=== PATIENT | male | born 1975 | race Hispanic/Latino ===

== ENCOUNTER 2025-03-05 07:21 | Day surgery (SDC) | payer BC ==
--- NOTE | 2025-02-27 16:17 | RAD REPORT ---
EXAM: Chest Pa And Lat (2 Views) HISTORY: 49 years Male Pre-op pending hernia repair COMPARISON: None. FINDINGS: LUNGS/PLEURA: The lungs are clear. No pleural effusions or pneumothorax. No pulmonary edema. CARDIAC/MEDIASTINUM: The cardiac silhouette is within normal limits. UPPER ABDOMEN: No significant abnormality. BONES: No acute abnormality. LINES/TUBES/OTHER: N/A IMPRESSION: No evidence of acute cardiopulmonary disease.
[2025-02-27 16:57] LABS: Hematocrit 41.2 % (39.6-49.0); Hemoglobin 13.8 g/dL (13.6-17.9); MCH 28.6 pg (27.0-35.0); MCHC 33.5 g/dL (32.0-36.0); MCV 85.2 fL (80-100); Platelets 309 thou/uL (152-406); RBC Red Blood Cell Count 4.84 M/uL (4.33-5.43); Red Cell Distribution Width 14.5 % (12.1-15.2)
[2025-02-27 16:58] LABS: Basophils % 0.5 % (0-1.3); Lymphocytes % 29.5 % (15.3-44.8); MPV 6.4 fL (7.6-11.3); Monocytes % 5.7 % (3.3-12.3); Neutrophils % 60.3 % (41.7-73.7)
[2025-02-27 16:59] LABS: Absolute Eosinophils 0.3 K/uL (0-0.5); Absolute Lymphocytes (CBC) 2.1 K/uL (0.7-4.9); Absolute Monocytes 0.4 K/uL (0.1-1.3); Absolute Neutrophil 4.3 K/uL (1.8-8.0); Nucleated Red Blood Cells % 0.1 % (0-0)
[2025-02-27 17:10] LABS: Anion Gap 6.8 mEq/L (5.0-15.0); Potassium 3.8 mEq/L (3.5-5.1)
--- NOTE | 2025-02-28 13:23 | EKG ---
Test Date: 2025-02-27 Test Time: 15:33:49 Stroke Program Coordinator: MARNIE MEASUREMENT RESULTS: Intervals: Rate: 80 AL: 140 QRSD: 100 QT: 354 QTc: 408 [place]: P: 49 AL: 140 QRS: 43 T: 47 INTERPRETIVE STATEMENTS: Normal sinus rhythm Normal ECG No previous ECG available for comparison Electronically Signed On 02-28-25 13:18:55 CDT by Carlton Saeed
[2025-03-05] MEDS: Ringers Lactate 1,000 ML IV ONE ×2 (07:50→09:50)
[2025-03-05] MEDS ORDERED: propofoL 200 MG/20 ML VIAL IV ONE (08:08)
[2025-03-05] MEDS ORDERED: LIDOCAINE 1% MPF 5 ML VIAL ONE (08:08)
[2025-03-05] MEDS ORDERED: ONDANSETRON 4 MG/2 ML VIAL ONE (08:08)
[2025-03-05] MEDS ORDERED: FENTANYL CITR 100 MCG/2 ML ONE (08:08)
[2025-03-05] MEDS ORDERED: ROCURONIUM 50 MG/5 ML VIAL IV ONE (08:08)
[2025-03-05] MEDS ORDERED: KETOROLAC 30 MG/ML INJ ONE (08:08)
[2025-03-05] MEDS ORDERED: MIDAZOLAM HCL 2 MG/2 ML INJ ONE (08:08)
[2025-03-05] MEDS: CEFAZOLIN SODIUM 1 GM/VIAL ONE (09:15)
[2025-03-05] MEDS ORDERED: GLYCOPYRROLATE 0.2 MG/ML SYR ONE ×2 (09:27→09:42)
[2025-03-05] MEDS ORDERED: Mastisol Adhesive Liq ONE (09:58)
--- NOTE | 2025-03-05 10:06 | P.BOP ---
Preoperative diagnosis: tender left inguinal hernia Postoperative diagnosis: same Primary procedure: Laparoscopic repair of tender left inguinal hernia with mesh Estimated blood loss: <10cc Specimen: none Findings: as above Anesthesia: General Complications: None Implants: medium mesh, sorbafix Transferred to: Recovery Room Condition: Good
[2025-03-05 10:32] VITALS: O2SAT 100
[2025-03-05 10:44] VITALS: TEMP 97.8
[2025-03-05] MEDS ORDERED: TAMSULOSIN 0.4 MG SR CAP ONE (11:08)
[2025-03-05] MEDS: CODEINE 30MG/APAP 300MG TAB ONE (11:11)
[2025-03-05] MEDS: TAMSULOSIN 0.4 MG SR CAP PO ONE (11:11)
[2025-03-05 12:09] VITALS: BP 138/95
--- NOTE | 2025-03-06 18:09 | OP ---
Date of Procedure: 03/05/2025 Surgeon: Leoncio Sheppard MD Preoperative Diagnosis: Tender left inguinal hernia. Postoperative Diagnosis: Tender left inguinal hernia. Procedure: Laparoscopic repair of tender left inguinal hernia with mesh. Estimated Blood Loss: Less than 10 cc. Specimen: None. Findings: Left inguinal hernia. Anesthesia: General plus local. Implant: Medium mesh and SorbaFix. Indications: This is the case of a male, who came to us with a tender left inguinal hernia. The selina efits, alternatives, and risks of repair laparoscopic versus open with the use of mesh fully explaine d to the patient which include, but not limited to, infection, bleeding, damage to adjacent structure s, anesthesia complication, recurrence, [place], and even . He also understands this may not relieve any symptoms. We might need more than one surgical intervention. He also understands we might be u sing mesh in that region. So, pros and cons of mesh placement were discussed. The patient signed a consent. Description Of Procedure: The patient was brought to the operating room, placed in supine position. Anesthesia was induced without complication. Abdominal area was prepped and draped in a sterile fas hion. A time-out was called. The patient was placed in Trendelenburg position. The skin incision w as made in the area in the periumbilical region. Incision was carried down until we found the anteri or rectus sheath that was opened on the left side. The muscle retracted laterally to expose the post erior rectus sheath. The extraperitoneal space was developed with the help of blunt dissection and a balloon tipped trocar was placed in that area directed to the pubic symphysis. A laparoscope was pl aced and then the balloon was inflated under direct visualization to create the extraperitoneal space . The balloon was then deflated and removed. The area was insufflated and then under direct visuali zation with the camera, we placed a 5 mm trocar just to the area of pubis symphysis and another one b efore the first and the second one. The preperitoneal space was further developed by exposing the in ferior epigastric vessels and keeping them anterior. The Preston ligament was dissected laterally to the junction with the iliac veins and then dissection continued inferiorly to the iliopubic tract bhargav iding damage to the femoral branch of the genitofemoral nerve and lateral femoral cutaneous nerve. T he cord structures were carefully skeletonized. The hernia was identified, reduced by gentle tractio n into the peritoneal cavity. At that moment, I proceeded then to select a medium 3D mesh and rolled it into a cylinder and passed it through the Paul trocar. The mesh was placed along the inferior aspect of the working space to cover direct/indirect spaces. The mesh was secured in place with Sorb aFix lateral and superior to the iliopubic tract and inferior and medial to the Preston ligament. Aft er ensuring adequate hemostasis, we proceeded then to allow the air to escape while holding the mesh gentle in place. The trocars were removed. Anterior rectus sheath was closed with #1 Vicryl and the subcutaneous tissue closed with 3-0 chromic and Steri-Strips placed over the area. Sponge counts an d instrument counts correct. Patient tolerated the procedure well. Patient sent to recovery in stab le condition. GUS/INOCENTE Voice ID: [id number] Report ID: [id number]
--- NOTE | 2025-03-06 18:14 | DS ---
Date of Discharge: 03/05/2025 Diagnosis: Tender left inguinal hernia. Procedure: Laparoscopic repair of tender left inguinal hernia with mesh. Condition: Stable. Disposition: Home. Activity: As tolerated. No heavy lifting. Discharge Instructions: Follow up in my office in 1 week. Call for appointment at [phone]. Keep a yusra dry for 48 hours, then may shower. Cold compress of the left inguinal region for 24 hours. GUS/INOCENTE Voice ID: [id number] Report ID: [id number]
== END 2025-03-05 11:52 | disposition home or self-care (01) ==
LOC: PRE 07:21 → OR 11:52
PROVIDERS: ATTEND Surgery
PROC: 0YU64JZ Supplement Left Inguinal Region with Synthetic Substitute, Percutaneous Endoscopic Approach (ICD-10-PCS; principal; 2025-03-05 08:45)
DX: K40.90 Unilateral inguinal hernia, without obstruction or gangrene, not specified as recurrent (principal)
CPT/HCPCS: 93005; 85025; 80048; 36415; 71046; 49505; J2704; J2003; J2250; J3010; J2405; J7120 ×2; J0690